=== PATIENT | female | born 1955 | race Caucasian/White ===

== ENCOUNTER 2017-03-15 23:15 | Inpatient (IN) | payer BC, MEDICARE ==
[~2017-03-15] VITALS: Ht 147.3 cm; Wt 108.4 kg
[2017-03-15] MEDS ORDERED: METHYLPREDNISOLONE SOD SUCC 125 MG/2 ML VIAL IV STA (23:38)
[2017-03-15] MEDS ORDERED: ALBUTEROL (0.083%) 2.5MG/3ML NEB HHN STA (23:38)
[2017-03-15] MEDS ORDERED: MAGNESIUM 2 G PREMIX 50 ML IV ONE (23:45)
[2017-03-15] MEDS ORDERED: ASPIRIN 81MG TABLET PO ONE (23:45)
[2017-03-15] MEDS ORDERED: LEVOFLOXACIN 750MG PREMIX 150 ML IV ONE (23:45)
[2017-03-15] MEDS ORDERED: NITROGLYCERIN OINT 1GM/INCH UDPKT TD ONE (23:45)
[2017-03-16] MEDS ORDERED: VANCOMYCIN 1 G PREMIX 200 ML IV NR (00:45)
[2017-03-16 00:54] LABS: BASOPHILS % 0.9 % (0.0-2.0); EOSINOPHILS % 6.3 % (0.0-5.0); HEMATOCRIT. 27.8 % (36.0-48.0); HEMOGLOBIN. 8.8 g/dL (12.0-16.0); MEAN CORPUSCULAR HEMOGLOBIN 24.1 pg (28.0-32.0); MEAN CORPUSCULAR VOLUME 75.8 fL (81.0-99.0); MEAN PLATELET VOLUME 7.7 fl (7.4-10.4); MONOCYTES % 9.8 % (2.0-8.0); PLATELET 326 x1000/uL (130-400); RED BLOOD CELL COUNT 3.66 mill/uL (4.2-5.4); RED CELL DISTRIBUTION WIDTH 18.8 % (11.6-14.6)
[2017-03-16 00:58] LABS: INR 1.1; PROTHROMBIN TIME 11.6 sec (9.4-11.6)
[2017-03-16 01:11] LABS: CARBON DIOXIDE 28 mEq/L (21-32); CHLORIDE 108 mEq/L (98-107); ETHANOL BLOOD < 10 mg/dL; TROPONIN I 0.04 ng/mL (0.00-0.04)
[2017-03-16] MEDS ORDERED: FUROSEMIDE 40MG/4ML VIAL IVP NR ×2 (02:15→10:15)
[2017-03-16] MEDS ORDERED: METHYLPREDNISOLONE SOD SUCC 125 MG/2 ML VIAL IV NR (10:15)
[2017-03-16] MEDS ORDERED: LEVOFLOXACIN 750MG PREMIX 150 ML IV NR (10:15)
[2017-03-16] MEDS ORDERED: ALBUTEROL (0.083%) 2.5MG/3ML NEB HHN NR (10:15)
[2017-03-16] MEDS ORDERED: MAGNESIUM 2 G PREMIX 50 ML IV NR (10:21)
[2017-03-16 12:30] LABS: CLARITY URINE TURBID (CLEAR); COLOR URINE YELLOW (YELLOW); GLUCOSE URINE NEGATIVE (NEGATIVE); KETONES URINE TRACE (NEGATIVE); LEUKOCYTE ESTERASE URINE 3+ (NEGATIVE); NITRITE URINE NEGATIVE (NEGATIVE); OCCULT BLOOD URINE 1+ (NEGATIVE); PROTEIN URINE 2+ (NEGATIVE); SPECIFIC GRAVITY URINE 1.019 (1.005-1.030)
[2017-03-16 12:53] VITALS: BP 159/86
[2017-03-16 13:05] LABS: *AMPHETAMINES SCREEN URINE NEGATIVE (NEGATIVE); *BARBITURATES SCREEN URINE NEGATIVE (NEGATIVE); *BENZODIAZEPINES SCREEN URINE NEGATIVE (NEGATIVE); *COCAINE SCREEN URINE NEGATIVE (NEGATIVE); CANNABINOID URINE SCREEN NEGATIVE (NEGATIVE); METHADONE URINE SCREEN NEGATIVE (NEGATIVE); OPIATES URINE SCREEN NEGATIVE (NEGATIVE); PHENCYCLIDINE URINE SCREEN NEGATIVE (NEGATIVE)
[2017-03-16] MEDS ORDERED: IPRATROPIUM/ALBUTEROL 0.5-3(2.5)MG/3ML NEB HHN PRN (15:00)
[2017-03-16] MEDS ORDERED: CLONIDINE 0.1MG TABLET PO PRN (15:15)
[2017-03-16 15:37] LABS: BG BASE EXCESS 2.3 mmol/L (-2.0-2.0); BG CARBOXYHEMOGLOBIN 0.5 % (0.5-1.5); BG DEOXYHEMOGLOBIN 3.9 % (0.0-5.0); BG HCO3 ACT 27.1 mmol/L (22.0-26.0); BG OXYGEN SATURATION 96.1 % (92.0-98.5); BG OXYHEMOGLOBIN 95.6 % (94.0-97.0); BG PH 7.418 (7.350-7.450); BG PO2 82.6 mmHg (75.0-100.0); BG SAMPLE SITE RIGHT RADIAL; BG TOTAL HEMOGLOBIN 10.7 g/dL (12.0-18.0); BG VENT MODE MASK - NRB
[2017-03-16] MEDS ORDERED: DEXTROSE 50% WATER 50ML SYRINGE IV PRN (16:00)
[2017-03-16] MEDS ORDERED: CEFTRIAXONE 2 G PREMIX 50 ML IV SCH (17:00)
[2017-03-16] MEDS: BLOOD SUGAR DIAGNOSTIC STRIP TEST SCH ×2 (17:13→21:00)
[2017-03-16] MEDS: METHYLPREDNISOLONE SOD SUCC 40 MG/ML VIAL IV SCH ×2 (17:20→22:29)
[2017-03-16] MEDS: ENOXAPARIN 100MG/ML SYR SUBCUT SCH ×2 (17:20→22:33)
[2017-03-16] MEDS: INSULIN LISPRO 100 UNITS/ML SUBCUT SCH ×2 (17:23→21:00)
[2017-03-16] MEDS ORDERED: VANCOMYCIN 1,750 MG in DEXT 5% WATER 500 ML IV NR (18:00)
[2017-03-16] MEDS: CEFTRIAXONE 2 G in DEXTROSE 5% WATER 50 ML IV SCH (18:18)
[2017-03-16 20:00] VITALS: BP 167/55
[2017-03-16] MEDS: BUDESONIDE 0.5MG/2ML NEB HHN SCH (20:01)
[2017-03-16] MEDS: IPRATROPIUM/ALBUTEROL 0.5-3(2.5)MG/3ML NEB HHN SCH (20:02)
[2017-03-17] MEDS: IPRATROPIUM/ALBUTEROL 0.5-3(2.5)MG/3ML NEB HHN SCH ×2 (02:05→21:18)
[2017-03-17] MEDS: BUDESONIDE 0.5MG/2ML NEB HHN SCH ×4 (02:05→21:18)
[2017-03-17 04:00] VITALS: BP 154/58
[2017-03-17] MEDS: BLOOD SUGAR DIAGNOSTIC STRIP TEST SCH ×4 (05:49→21:53)
[2017-03-17] MEDS: METHYLPREDNISOLONE SOD SUCC 40 MG/ML VIAL IV SCH ×3 (05:59→21:52)
[2017-03-17] MEDS: INSULIN LISPRO 100 UNITS/ML SUBCUT SCH ×4 (05:59→21:57)
[2017-03-17] MEDS ORDERED: VANCOMYCIN 750 MG PREMIX 150 ML IV SCH (06:00)
[2017-03-17 07:52] LABS: HEMATOCRIT. 30.9 % (36.0-48.0); HEMOGLOBIN. 9.8 g/dL (12.0-16.0); LYMPHOCYTES % 9.1 % (20.0-50.0); MEAN CORPUSCULAR VOLUME 75.9 fL (81.0-99.0); MEAN PLATELET VOLUME 8.1 fl (7.4-10.4); NEUTROPHILS % 89.9 % (40.0-76.0); PLATELET 381 x1000/uL (130-400); RED BLOOD CELL COUNT 4.08 mill/uL (4.2-5.4); RED CELL DISTRIBUTION WIDTH 18.9 % (11.6-14.6)
[2017-03-17 07:59] LABS: CHLORIDE 105 mEq/L (98-107)
[2017-03-17 08:00] VITALS: BP 161/64
[2017-03-17 08:13] LABS: CARBON DIOXIDE 25 mEq/L (21-32); CREATINE KINASE 20 IU/L (26-192); CREATINE KINASE MB FRACTION 0.7 ng/mL (0.5-3.6); HDL CHOLESTEROL 53 mg/dL (40-59); LDL CHOLESTEROL 88 mg/dL (5-100); TROPONIN I < 0.02 ng/mL (0.00-0.04)
[2017-03-17] MEDS ORDERED: FUROSEMIDE 40MG/4ML VIAL IVP SCH (09:00)
[2017-03-17] MEDS: FUROSEMIDE 40MG/4ML VIAL IVP SCH (10:02)
[2017-03-17] MEDS: ENOXAPARIN 100MG/ML SYR SUBCUT SCH ×2 (10:02→21:53)
[2017-03-17 12:00] VITALS: BP 136/85
[2017-03-17] MEDS: LORAZEPAM 2MG/ML CPJ IV PRN (12:29)
[2017-03-17 16:00] VITALS: BP 160/73
[2017-03-17] MEDS: VANCOMYCIN 750 MG PREMIX 150 ML IV SCH ×2 (16:24→21:52)
[2017-03-17] MEDS ORDERED: LORAZEPAM 2MG/ML CPJ IV SCH (17:30)
[2017-03-17] MEDS: CEFTRIAXONE 2 G in DEXTROSE 5% WATER 50 ML IV SCH (17:41)
[2017-03-17 20:00] VITALS: BP_SYST 101; BP_SYST 155; BP_DIAS 51; BP_DIAS 75
[2017-03-18] VITALS: BP 156/69
[2017-03-18] MEDS: IPRATROPIUM/ALBUTEROL 0.5-3(2.5)MG/3ML NEB HHN SCH ×4 (02:35→20:29)
[2017-03-18] MEDS: INSULIN LISPRO 100 UNITS/ML SUBCUT SCH ×4 (06:39→21:02)
[2017-03-18] MEDS: BLOOD SUGAR DIAGNOSTIC STRIP TEST SCH ×4 (06:39→20:49)
[2017-03-18] MEDS: METHYLPREDNISOLONE SOD SUCC 40 MG/ML VIAL IV SCH ×3 (06:39→20:42)
[2017-03-18] MEDS: LORAZEPAM 2MG/ML CPJ IV PRN ×2 (06:40→20:42)
[2017-03-18 08:00] VITALS: BP 181/85
[2017-03-18] MEDS: VANCOMYCIN 750 MG PREMIX 150 ML IV SCH (08:46)
[2017-03-18] MEDS: FUROSEMIDE 40MG/4ML VIAL IVP SCH (08:46)
[2017-03-18] MEDS: ENOXAPARIN 100MG/ML SYR SUBCUT SCH ×2 (08:46→20:46)
[2017-03-18 09:44] LABS: HEMATOCRIT. 29.5 % (36.0-48.0); HEMOGLOBIN. 9.3 g/dL (12.0-16.0); MEAN CORPUSCULAR HEMOGLOBIN 23.8 pg (28.0-32.0); MEAN CORPUSCULAR VOLUME 75.9 fL (81.0-99.0); MEAN PLATELET VOLUME 8.1 fl (7.4-10.4); PLATELET 320 x1000/uL (130-400); RED BLOOD CELL COUNT 3.89 mill/uL (4.2-5.4); RED CELL DISTRIBUTION WIDTH 18.9 % (11.6-14.6)
[2017-03-18 12:00] VITALS: BP 169/79
[2017-03-18] MEDS ORDERED: LORAZEPAM 2MG/ML CPJ IM PRN (14:00)
[2017-03-18] MEDS: NITROFURANTOIN 100MG M/M CAPSULE PO SCH ×3 (15:03→20:42)
[2017-03-18] MEDS: LEVOFLOXACIN 500MG TABLET PO SCH (17:33)
[2017-03-18 17:51] LABS: PLATELET ESTIMATE NORMAL
[2017-03-18 18:00] VITALS: BP 163/93
[2017-03-18] MEDS ORDERED: CEFTRIAXONE 2 G PREMIX 50 ML IV SCH (18:00)
[2017-03-18 20:00] VITALS: BP 162/67
[2017-03-18] MEDS: BUDESONIDE 0.5MG/2ML NEB HHN SCH (20:28)
[2017-03-18] MEDS ORDERED: NITROFURANTOIN 100MG M/M CAPSULE PO SCH (21:00)
[2017-03-18] MEDS: INSULIN DETEMIR UD 100 UNITS/ML SYR SUBCUT SCH (21:02)
[2017-03-19] VITALS: BP 172/81
[2017-03-19] MEDS: IPRATROPIUM/ALBUTEROL 0.5-3(2.5)MG/3ML NEB HHN SCH (02:47)
[2017-03-19 04:00] VITALS: BP 139/88
[2017-03-19] MEDS: BLOOD SUGAR DIAGNOSTIC STRIP TEST SCH ×2 (06:36→11:42)
[2017-03-19] MEDS: INSULIN LISPRO 100 UNITS/ML SUBCUT SCH ×2 (06:41→11:42)
[2017-03-19 07:23] LABS: BASOPHILS % 0.1 % (0.0-2.0); HEMATOCRIT. 29.1 % (36.0-48.0); HEMOGLOBIN. 9.2 g/dL (12.0-16.0); LYMPHOCYTES % 7.7 % (20.0-50.0); MEAN CORPUSCULAR HEMOGLOBIN 24.2 pg (28.0-32.0); MEAN CORPUSCULAR VOLUME 76.4 fL (81.0-99.0); MEAN PLATELET VOLUME 8.2 fl (7.4-10.4); NEUTROPHILS % 88.2 % (40.0-76.0); PLATELET 271 x1000/uL (130-400); RED BLOOD CELL COUNT 3.81 mill/uL (4.2-5.4); RED CELL DISTRIBUTION WIDTH 18.9 % (11.6-14.6)
[2017-03-19] MEDS: METHYLPREDNISOLONE SOD SUCC 40 MG/ML VIAL IV SCH (09:00)
[2017-03-19] MEDS: ENOXAPARIN 100MG/ML SYR SUBCUT SCH (09:19)
[2017-03-19] MEDS: NITROFURANTOIN 100MG M/M CAPSULE PO SCH (09:19)
[2017-03-19] MEDS: FUROSEMIDE 40MG/4ML VIAL IVP SCH (11:02)
[2017-03-19] MEDS: LEVOFLOXACIN 500MG TABLET PO SCH (11:02)
[2017-03-19] MEDS: INSULIN DETEMIR UD 100 UNITS/ML SYR SUBCUT SCH (11:03)
[2017-03-19 12:11] VITALS: BP 162/72
[2017-03-19 12:22] VITALS: BP 162/72
[2017-03-19 16:00] VITALS: BP 179/72
[2017-03-20] MEDS ORDERED: LEVOFLOXACIN 500MG TABLET PO SCH (11:00)
== END 2017-03-19 16:47 | DRG 871 ==
LOC: ER 23:15 → 8WST 03-16 02:05 → EDBEDREQTM 03-16 02:18 → EDBEDREQ 03-16 02:18 → ENRESERV 03-16 10:59
PROVIDERS: ADMIT Internal Medicine; ATTEND Internal Medicine
DX: A41.9 Sepsis, unspecified organism (principal); J18.9 Pneumonia, unspecified organism; J96.01 Acute respiratory failure with hypoxia; I11.0 Hypertensive heart disease with heart failure; I50.9 Heart failure, unspecified; N39.0 Urinary tract infection, site not specified; E11.9 Type 2 diabetes mellitus without complications; B96.20 Unspecified Escherichia coli [E. coli] as the cause of diseases classified elsewhere; L03.115 Cellulitis of right lower limb; L03.116 Cellulitis of left lower limb; E46 Unspecified protein-calorie malnutrition; Z68.43 Body mass index [BMI] 50.0-59.9, adult; E66.01 Morbid (severe) obesity due to excess calories; I25.10 Atherosclerotic heart disease of native coronary artery without angina pectoris; D64.9 Anemia, unspecified; E78.00 Pure hypercholesterolemia, unspecified; R07.89 Other chest pain; Z66 Do not resuscitate; I25.2 Old myocardial infarction; Z79.82 Long term (current) use of aspirin; Z86.711 Personal history of pulmonary embolism; Z86.718 Personal history of other venous thrombosis and embolism; Z86.73 Personal history of transient ischemic attack (TIA), and cerebral infarction without residual deficits; Z95.1 Presence of aortocoronary bypass graft; Z90.710 Acquired absence of both cervix and uterus; Z95.5 Presence of coronary angioplasty implant and graft; Z88.0 Allergy status to penicillin; Z88.8 Allergy status to other drugs, medicaments and biological substances; Z90.49 Acquired absence of other specified parts of digestive tract
CPT/HCPCS: 36415; 36600; 71010; 71250; 78582; 80048; 80053; 80061; 80202; 80305; 81001; 82375; 82550; 82553; 82805; 82962; 83605; 83690; 83735; 83880; 84443; 84484; 85025; 85379; 85610; 87040; 87077; 87086; 87186; 93005; 93306; 94640; 96374; 96375; 97162; 99285; C1893; G0482; J0696; J1650; J1815; J1940; J2060; J2920; J2930; J3370; J7060; J7611; J7620; J7626; A4315